=== PATIENT | female | born 1955 | race Caucasian/White ===

== ENCOUNTER 2020-11-22 21:31 | Inpatient (IN) | payer MEDICARE ==
[~2020-11-22] VITALS: Ht 160 cm; Wt 59.0 kg
[2020-11-22 21:35] VITALS: BP 119/63
[2020-11-22 22:19] LABS: ABSOLUTE BASOPHILS 0.1 thou/uL (0.0-0.2); ABSOLUTE EOSINOPHILS 0.1 thou/uL (0.0-0.7); ABSOLUTE MONOCYTES 0.3 thou/uL (0.0-1.2); ABSOLUTE NEUTROPHILS 3.5 thou/uL (1.6-8.1); BASOPHILS 0.9 %; EOSINOPHILS 1.3 %; HEMATOCRIT 36.2 % (37.0-47.0); HEMOGLOBIN 11.7 gm/dL (12.0-15.0); LYMPHOCYTES 33.5 %; MCH 30.1 pg (26.0-34.0); MCHC 32.4 g/dL (28.0-37.0); MONOCYTES 4.6 %; NUCLEATED RBCS 0 /100WBC; PLATELET COUNT* 253 thou/uL (150-400); POLYS 59.7 %; RBC 3.89 mil/uL (4.20-5.00); RDW-CV 22.8 % (10.5-14.5); WBC 5.9 thou/uL (4.0-11.0)
[2020-11-22 22:41] LABS: CALCIUM 7.8 mg/dL (8.5-10.1); POTASSIUM 3.6 mmol/L (3.5-5.1)
[2020-11-22 22:45] LABS: ALBUMIN 2.9 g/dL (3.4-5.0); MAGNESIUM 2.3 mg/dL (1.8-2.4); TOTAL BILIRUBIN 0.3 mg/dL (<0.1-1.0); TOTAL PROTEIN 6.6 g/dL (6.4-8.2)
[2020-11-22 23:03] LABS: ANISOCYTOSIS 2+; PLATELET ESTIMATE ADEQUATE
[2020-11-22 23:04] LABS: MICROCYTES Occasional
[2020-11-23 04:00] VITALS: BP 105/57
[2020-11-23 04:39] LABS: URINE BILIRUBIN NEGATIVE (Negative); URINE BLOOD NEGATIVE (Negative); URINE CLARITY CLEAR; URINE COLOR YELLOW; URINE GLUCOSE-RANDOM NEGATIVE (Negative); URINE KETONES TRACE (Negative); URINE LEUKOCYTES-REFLEX NEGATIVE (Negative); URINE NITRITE-REFLEX NEGATIVE (Negative); URINE PROTEIN NEGATIVE (Negative); URINE SPECIFIC GRAVITY <= 1.005 (1.005-1.030); URINE UROBILINOGEN 0.2 E.U./dl (0.2-1.0)
[2020-11-23 04:48] LABS: AMP/METHAMP Negative (Negative); BARBITURATES Negative (Negative); BENZODIAZEPINES Negative (Negative); COCAINE Negative (Negative); METHADONE Negative (Negative); OPIATES Negative (Negative); PCP Negative (Negative); THC Negative (Negative)
[2020-11-23 09:57] VITALS: BP 112/76
--- NOTE | 2020-11-23 10:52 | EKG ---
[place] [address] ELECTROCARDIOGRAM REPORT Name: STEVEN KOHLER Room: [address] M.R.#: [id number] Admission: 11/22/20 Attend Phys: Phillip Blanco, Discharge: Date of : 59 Date of Service: 11/22/207 Report #: [id number] THIS REPORT FOR: //name// [facility] ED Test Date: 2020-11-22 Test Time: 21:37:37 Pat Name: STEVEN KOHLER Department: Room: [place] [address] Gender: F Critical Care Rn: DOMINGO : 1955 Requested By: Marion Kilpatrick Order Number: [id number] MD: Sal Allison Measurements Intervals [place] Rate: 95 P: 33 MO: 167 QRS: 104 QRSD: 93 T: 4 QT: 410 QTc: 516 Interpretive Statements Sinus rhythm Probable left atrial enlargement Anteroseptal infarct, age indeterminate Prolonged QT interval No previous ECG available for comparison Electronically Signed On 11-23-2020 10:51:55 CDT by Sal Allison [email or web address] <ELECTRONICALLY SIGNED> By: Royce Allison MD, [facility] 11/23/20 1051 36 36 Royce Allison MD, [facility] /EPI
[2020-11-23 14:12] VITALS: BP 138/78
[2020-11-23 18:43] VITALS: BP 133/77
[2020-11-23 22:45] VITALS: BP 128/73
[2020-11-24 02:45] VITALS: BP 120/69
[2020-11-24 03:48] LABS: ABSOLUTE BASOPHILS 0.1 thou/uL (0.0-0.2); ABSOLUTE EOSINOPHILS 0.1 thou/uL (0.0-0.7); ABSOLUTE LYMPHOCYTES 2.5 thou/uL (0.8-5.3); ABSOLUTE MONOCYTES 0.3 thou/uL (0.0-1.2); ABSOLUTE NEUTROPHILS 2.1 thou/uL (1.6-8.1); BASOPHILS 2.2 %; CALCIUM 7.4 mg/dL (8.5-10.1); CREATININE 0.8 mg/dL (0.6-1.3); EOSINOPHILS 1.6 %; HEMATOCRIT 32.2 % (37.0-47.0); HEMOGLOBIN 10.4 gm/dL (12.0-15.0); LYMPHOCYTES 49.2 %; MCH 30.4 pg (26.0-34.0); MCHC 32.3 g/dL (28.0-37.0); MCV 94.4 fL (80.0-100.0); MPV 6.6 fl. (7.2-11.1); NUCLEATED RBCS 0 /100WBC; PLATELET COUNT* 217 thou/uL (150-400); POTASSIUM 3.4 mmol/L (3.5-5.1); RBC 3.41 mil/uL (4.20-5.00); RDW-CV 23.6 % (10.5-14.5)
[2020-11-24 06:27] VITALS: BP 123/67
[2020-11-24 08:07] LABS: ANISOCYTOSIS 2+; PLATELET ESTIMATE ADEQUATE
--- NOTE | 2020-11-24 10:45 | EKG ---
[place] [address] ELECTROCARDIOGRAM REPORT Name: STEVEN KOHLER Room: [place] [address] ADM IN .R.#: [id number] Admission: 11/22/20 Attend Phys: Phillip Blanco, Discharge: Date of : 59 Date of Service: 11/23/20 0310 Report #: [id number] THIS REPORT FOR: //name// [facility] ED Test Date: 2020-11-23 Test Time: 03:10:13 Pat Name: STEVEN KOHLER Department: Room: [place] [address] Gender: F [employer]: : 1955 Requested By: Alex Hankins Order Number: [id number] Reading MD: Eric James Measurements Intervals [place] Rate: 88 P: 61 NC: 178 QRS: 105 QRSD: 96 T: 69 QT: 408 QTc: 494 Interpretive Statements Sinus rhythm nonspecific st segment changes Probable left atrial enlargement septal infarct, age indeterminate Compared to ECG 11/22/2020 21:37:37 Prolonged QT interval no longer present Myocardial infarct finding still present Electronically Signed On 11-24-2020 10:45:15 CDT by Eric James [email or web address] <ELECTRONICALLY SIGNED> By: Eric James MD, [facility] 11/24/20 1045 9 Eric James MD, [facility]AC /EPI
[2020-11-24 11:00] VITALS: BP 115/66
[2020-11-24 14:45] VITALS: BP 124/71
[2020-11-24] MEDS ORDERED: GABAPENTIN 100100 MG PO (15:05)
[2020-11-24] MEDS ORDERED: ZANAFLEX4 M1 PO (15:06)
[2020-11-24] MEDS ORDERED: HYDROCODON-ACE1 EAC7 PO (15:06)
[2020-11-24] MEDS ORDERED: MORPHINE SULFAT15 MG PO (15:06)
[2020-11-24] MEDS ORDERED: FLEXERIL PO (15:07)
[2020-11-24 18:34] VITALS: BP 121/71
[2020-11-24 22:00] VITALS: BP 98/56
[2020-11-25 03:00] VITALS: BP 96/54
[2020-11-25 03:23] LABS: ABSOLUTE LYMPHOCYTES 0.7 thou/uL (0.8-5.3); ABSOLUTE MONOCYTES 0.1 thou/uL (0.0-1.2); ABSOLUTE NEUTROPHILS 3.2 thou/uL (1.6-8.1); BASOPHILS 0.9 %; EOSINOPHILS 0.3 %; HEMATOCRIT 35.2 % (37.0-47.0); HEMOGLOBIN 11.2 gm/dL (12.0-15.0); LYMPHOCYTES 17.5 %; MCH 30.5 pg (26.0-34.0); MCHC 31.9 g/dL (28.0-37.0); MCV 95.5 fL (80.0-100.0); MONOCYTES 2.4 %; MPV 6.8 fl. (7.2-11.1); NUCLEATED RBCS 0 /100WBC; PLATELET COUNT* 234 thou/uL (150-400); POLYS 78.9 %; RBC 3.68 mil/uL (4.20-5.00); WBC 4.1 thou/uL (4.0-11.0)
[2020-11-25 04:09] LABS: ALBUMIN 2.7 g/dL (3.4-5.0); CALCIUM 7.6 mg/dL (8.5-10.1); CREATININE 0.7 mg/dL (0.6-1.3); POTASSIUM 3.9 mmol/L (3.5-5.1); TOTAL BILIRUBIN 0.2 mg/dL (<0.1-1.0); TOTAL PROTEIN 6.4 g/dL (6.4-8.2)
[2020-11-25 06:00] VITALS: BP 111/63
[2020-11-25 06:19] LABS: ANISOCYTOSIS 2+; OVALOCYTES 1+; PLATELET ESTIMATE ADEQUATE; POIKILOCYTOSIS 1+
[2020-11-25 10:00] VITALS: BP 128/64
[2020-11-25 14:00] VITALS: BP 125/61
[2020-11-25 18:00] VITALS: BP 130/69
[2020-11-25 21:19] VITALS: BP 129/70
[2020-11-26 02:24] VITALS: BP 120/80
[2020-11-26 02:48] LABS: HEMATOCRIT 33.9 % (37.0-47.0); HEMOGLOBIN 11.3 gm/dL (12.0-15.0); MCH 31.2 pg (26.0-34.0); MCHC 33.2 g/dL (28.0-37.0); MPV 6.9 fl. (7.2-11.1); NUCLEATED RBCS 0 /100WBC; PLATELET COUNT* 261 thou/uL (150-400); RDW-CV 23.7 % (10.5-14.5); WBC 5.8 thou/uL (4.0-11.0)
[2020-11-26 03:03] LABS: ALBUMIN 2.6 g/dL (3.4-5.0); CREATININE 0.8 mg/dL (0.6-1.3); POTASSIUM 4.8 mmol/L (3.5-5.1); TOTAL BILIRUBIN 0.2 mg/dL (<0.1-1.0)
[2020-11-26 03:38] LABS: PREALBUMIN 17.1 mg/dL (18.0-35.7)
[2020-11-26 05:36] LABS: ABSOLUTE LYMPHOCYTES 0.3 thou/uL (0.8-5.3); ABSOLUTE MONOCYTES 0.1 thou/uL (0.0-1.2); ABSOLUTE NEUTROPHILS 5.4 thou/uL (1.6-8.1); ANISOCYTOSIS 1+; PLATELET ESTIMATE ADEQUATE; POIKILOCYTOSIS 1+; POLYCHROMASIA 1+
[2020-11-26 06:50] VITALS: BP 128/88
[2020-11-26] MEDS ORDERED: PROTONIX40 M2 PO (09:33)
[2020-11-26] MEDS ORDERED: PROAIR HFA8.5 GM INH (09:33)
[2020-11-26] MEDS ORDERED: AUGMENTIN 875-1 EACH PO (09:33)
[2020-11-26] MEDS ORDERED: PREDNISONE 10 M10 MG PO (09:33)
[2020-11-26 09:55] VITALS: BP 128/88
[2020-11-26 10:29] VITALS: BP 128/88
[2020-11-26 11:00] VITALS: BP 135/75
== END 2020-11-26 11:00 | disposition home health service (06) | DRG 177 ==
LOC: M.ERS 21:31 → M.TBA-ER 23:49
PROVIDERS: Emergency Medicine; ADMIT Internal Medicine; ATTEND Internal Medicine
DX: J15.6 Pneumonia due to other Gram-negative bacteria (principal); J96.01 Acute respiratory failure with hypoxia; G92 Toxic encephalopathy; M80.08XA Age-related osteoporosis with current pathological fracture, vertebra(e), initial encounter for fracture; E44.0 Moderate protein-calorie malnutrition; J44.9 Chronic obstructive pulmonary disease, unspecified; M47.24 Other spondylosis with radiculopathy, thoracic region; M47.26 Other spondylosis with radiculopathy, lumbar region; F17.210 Nicotine dependence, cigarettes, uncomplicated; E03.9 Hypothyroidism, unspecified; Z20.822 Contact with and (suspected) exposure to COVID-19; Z88.5 Allergy status to narcotic agent; Z68.23 Body mass index [BMI] 23.0-23.9, adult